=== PATIENT | male | born 1990 | race Caucasian/White ===

== ENCOUNTER 2024-12-08 12:26 | Emergency (ER) | payer SELFPAY | END 2024-12-08 16:06 | disposition left against medical advice (07) | PROVIDERS: Emergency Provider Emergency Medicine | DX: R04.0 Epistaxis (principal); Z53.21 Procedure and treatment not carried out due to patient leaving prior to being seen by health care provider ==

== ENCOUNTER 2025-10-02 09:57 | Emergency (ER) | payer SELFPAY ==
--- NOTE | ~2025-10-02 | XR_ITS ---
CLINICAL HISTORY: chest pain 2 view chest x-ray Comparison: None provided Findings: No consolidation or effusion. Normal size heart. No acute fracture. IMPRESSION: No acute cardiopulmonary findings. This document has been electronically signed by: Ron Velasquez MD on 10/02/2025 10:42:47
--- NOTE | 2025-10-02 09:59 | ED_ITS ---
HPI - General Adult General Chief complaint: Chest Pain Stated complaint: CHEST TIGHTNESS X12H PER EMS Time Seen by Provider: 10/02/25 09:59 Source: patient, EMS and other (patient's partner) Mode of arrival: EMS Limitations: no limitations History of Present Illness ED Provider: Cinthya Whittington PA-C HPI narrative: Patient is a 35 year old assigned male at with a history of TIA, DM not on medication, and tobacco use presenting to the emergency department today with palpitations and chest pain. Patient states that over the last couple of days he has had palpitations - like his heart is skipping a beat. Patient states that then he developed left sided chest pain and dizziness. 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 Patient states that his father around age 46 from a heart attack. Patient sates that he has not been on his Metformin for awhile due to an insurance lapse but he is now insured again and needs to see his PCP to get it represcribed. Patient denies any other complaints at this time. Related Data Previous Rx's ?Medication ?Instructions ?Recorded metformin 500 mg tablet 500 mg PO DAILY #30 tabs Allergies Allergy/AdvReac Type Severity Reaction Status Date / Time amoxicillin (AMOXICILLIN) Allergy Unknown UNKNOWN Verified 10/02/25 10:38 Review of Systems 2 Constitutional: Constitutional: Reports as per HPI Eyes: Eyes: Reports as per HPI ENT: Reports as per HPI Cardiovascular: Cardiovascular: Reports as per HPI Respiratory: Respiratory: Reports as per HPI Gastrointestinal: Gastrointestinal: Reports as per HPI Genitourinary: Genitourinary: Reports as per HPI Musculoskeletal: Musculoskeletal: Reports as per HPI Integumentary/Breasts: Skin/Breast: Reports as per HPI Neurologic: Reports as per HPI Psychiatric: Psychiatric: Reports as per HPI Endocrine: Endocrine: Reports as per HPI Hematologic/Lymphatic: Hematologic/Lymphatic: Reports as per HPI Allergic/Immunologic: Allergic/Immunologic: Reports as per HPI PMF Past Medical History Attestation statement: The following information was validated with the patient. (all information validated with the patient's partner) Source: old records reviewed, nursing notes reviewed and other (patient's partner provided additional history and confirmed the history provided by the patient. ) Social History Social History Smoked in Last 30 Days: Yes Use of substances other than those prescribed or required for medical reasons: No Advance Directives: No Advance Directives Information Provided: Yes Do you have a plan to hurt others: No Plan Physical Exam ED Vital Signs: Vital Signs - 24 hr 10/02/25 10:02 10/02/25 10:06 10/02/25 12:09 Temperature 98.5 F 98.5 F 98.0 F Pulse Rate 99 79 Respiratory Rate 16 18 20 Blood Pressure 136/86 136/86 104/59 L Pulse Oximetry 96 94 99 Oxygen Delivery Method Room Air Room Air Room Air BMI result Body Mass Index 39.9 Const General: cooperative, no acute distress, alert and awake Nutritional Appearance: well nourished Orientation/consciousness: patient oriented x3 HENMT Head: Yes normal to inspection and Yes atraumatic Ears: hearing grossly normal bilaterally and external ears normal General nose exam: Normal external nose present, no nasal discharge noted and no epistaxis Face and sinus: Yes normal facial exam, No abrasion and No laceration Mouth: Normal oral and palatal mucosa present, no drooling and no muffled voice Eyes General: appearance normal, both eyes and all related structures Periorbital: periorbital findings normal Eyelids: Yes eyelids normal Conjunctivae: conjunctivae normal Pupils: Equal, round and reactive pupils present EOM: EOMs intact bilaterally Neck Neck: Yes normal visual inspection and Yes full ROM Resp Effort & Inspection: normal respiratory effort and able to speak in complete sentences Cardio Rate: tachycardic Rhythm: regular rhythm Neuro General: patient oriented x3, moves all extremities and CN's II-XI intact bilaterally Cranial nerves: Yes Equal, round and reactive pupils present Cognition (Neuro): normal cognition Extrem General: Yes normal to inspection, Yes full ROM and Yes capillary refill normal Psych Appearance: grossly normal Mental Status: mental status grossly normal Affect: normal affect Attitude: cooperative Thought process: Normal thought process present Thought content: Normal thought content present Insight: Good insight present (Psych) Medications Administered Discontinued Medications Generic Name Dose Route Start Last Admin Trade Name Freq PRN Reason Stop Dose Admin Lactated Ringer's 1,000 mls @ 999 mls/hr 10/02/25 11:00 10/02/25 11:16 Lr IV 10/02/25 12:00 999 mls/hr .Q1H1M POLO Administration Medical Decision Making Medical Decision Making MDM Narrative: Patient is a 35 year old assigned male at with a history of TIA, DM not on medication, and tobacco use presenting to the emergency department today with palpitations and chest pain. Patient's physical exam was as noted in the physical exam portion of this note. Patient's blood work was unremarkable including negative repeat troponins and d dimer. Patient's EKG showed sinus tachycardia at 102bpm but otherwise unremarkable. Patient's HR was appropriate upon re-evaluation at 79 bpm. Patient's chest x-ray showed no acute process. I explained my physical exam findings as well as all test results to the patient and the patient's partner. I answered all questions asked by the patient and the patient's partner. Given patient's history of diabetes and not currently on his metformin due to lack of prescription - will restart the patient on 500mg of PO Metformin daily. I stressed the importance of the patient taking his medication as directed (either prescribed or as the over the counter packaging recommends). I stressed the importance of the patient following up with his primary care provider and a institutional asset manager given his extensive personal and familial history. I stressed the importance of the patient returning to the emergency department immediately if his symptoms were to worsen or if he were to develop any dizziness, shortness of breath, difficulty breathing, chest pain, blurry vision, loss of vision, nausea, vomiting, abdominal pain, fever, chills, back pain, or any other complaints. Patient and the patient's partner verbalized agreement and understanding with this treatment plan and discharge. Differential Diagnosis Differential Diagnoses: The differential diagnosis associated with the presentation includes Atypical chest pain NSTEMI STEMI PE Palpitations Admission/Observation Consideration of admission/observation: Escalation of care including admission/observation considered Patient would have been admitted to the hospital had his work up had any findings where hospital admission was appropriate and his clinical presentation warranted hospital admission. Lab Data [facility] Lab Attestation statement: I reviewed the patient's lab results. My interpretation of these results are in the MDM Rationale portion of this note. 10/02/25 10:21 10/02/25 10:21 Labs: Lab Results 10/02/25 10/02/25 10/02/25 Range/Units 10:21 10:43 11:32 WBC 6.4 (4.8-10.8) X10*3/uL RBC 5.54 (4.60-5.80) X10*6/uL Hgb 17.2 (14.0-18.0) g/dl Hct 46.7 (42.0-52.0) % MCV 84.3 (80.0-98.0) fL MCH 31.0 (27.0-33.0) pg MCHC 36.8 H (31.0-36.0) g/dl RDW 11.9 (11.0-16.0) % Plt Count 249 (160-400) X10*3/uL MPV 10.0 (9.4-12.4) fL Immature Gran % (Auto) 0.5 H (0.0-0.4) % Neut % (Auto) 54.5 (45-73) % Lymph % (Auto) 35.5 (20-40) % [place] % (Auto) 7.8 (2-11) % Eos % (Auto) 0.9 (0-4) % Baso % (Auto) 0.8 (0-2) % Lymph # (Auto) 2.3 (1.2-4.9) X10*3/uL [place] # (Auto) 0.5 (0.1-1.2) X10*3/uL Eos # (Auto) 0.1 (0.0-0.4) X10*3/uL Baso # (Auto) 0.1 (0.0-0.2) X10*3/uL Abs Immat Gran (auto) 0.03 (0.00-0.03) X10*3/uL Absolute Neuts (auto) 3.5 (2.0-8.3) x10*3/uL Absolute Nucleated RBC 0.000 (0.0-0.012) X10*3/uL Nucleated RBC % (auto) 0.0 (0.0-0.2) /100WBC PT 12.0 (11.2-13.5) SEC INR 1.0 (0.9-1.1) D-Dimer High Sensitivty < 150 NG/ML Sodium 139 (135-145) mmol/L Potassium 3.9 (3.3-5.1) mmol/L Chloride 106 (96-108) mmol/L Carbon Dioxide 24 (22-29) mmol/L Anion Gap 13 (12-20) BUN 14 (9-16) mg/dL Creatinine 0.73 (0.5-1.4) mg/dL Estim Creat Clear Calc 188.1 Estimated GFR > 60 Random Glucose 329 H (60-115) mg/dL Calcium 9.4 (8.4-10.2) mg/dL Magnesium 1.9 (1.6-2.6) mg/dL Total Bilirubin 0.9 (0.0-1.0) mg/dL AST 29 (5-37) U/L ALT 58 H (0-40) U/L Alkaline Phosphatase 142 H (39-117) U/L Troponin I High Sens < 2.7 < 2.7 (<3.5-35.0) ng/L NT-Pro-B Natriuret Pep 133.6 (<300) pg/mL Total Protein 7.5 (6.5-8.0) g/dL Albumin 4.4 (3.5-5.0) g/dL Influenza Type A (PCR) NEGATIVE (Negative) Influenza Type B (PCR) NEGATIVE (Negative) RSV RNA Qual (PCR) NEGATIVE (Negative) SARS-CoV-2 RNA (RT-PCR) NEGATIVE (Negative) Independent Interpretation I performed an independent interpretation of an: EKG and Plain X-Ray Interpretation: My interpretation is in agreement with the radiologist's impression of this imaging study as written below. CLINICAL HISTORY: chest pain 2 view chest x-ray Comparison: None provided Findings: No consolidation or effusion. Normal size heart. No acute fracture. IMPRESSION: No acute cardiopulmonary findings. This document has been electronically signed by: Ron Velasquez MD on 10/02/2025 10:42:47 Dictated By: Ron Velasquez MD Signed By: Electronically signed by Ron Velasquez MD 10/02/25 1044 I independently interpreted this EKG and am in agreement with the below findings: Vent. Rate: 102 BPM Atrial Rate: 102 BPM P-R Int: 150 ms QRS Dur: 96 ms QT Int: 334 ms P-R-T Axes: 27 18 12 degrees QTcB Int: 435 ms Sinus tachycardia When compared with ECG of 27-Jul-2017 12:40, No significant change was found DD/ 1004 Radiology Impression Discussion of test interpretation with radiology: I have reviewed the radiologist's reading. Independent Historian Clinical information obtained from an independent historian. History obtained from or confirmed by: EMS (EMS provided additional history and confirmed the history provided by the patient. ) and Other (patient's partner provided additional history and confirmed the history provided by the patient. ) Chronic Conditions Patient?s care impacted by: Diabetes Discharge Plan Discharge Clinical Impression: Atypical chest pain, Palpitations, Elevated blood sugar Patient Disposition: Home, Self-Care Instructions: Chest Pain (DC), Heart Palpitations (DC), Diabetic Hyperglycemia (ED) Additional Instructions: Your work up today is reassuring there is no EMERGENT cause for your symptoms however, given your personal and familial history - you should follow up with a institutional asset manager. I have restarted you on a low dose of metformin - please take this as prescribed for sugar control. IF you are prescribed home medications and/or you are taking over the counter medications at home - it is very important you continue to do so as prescribed / directed unless told otherwise by a healthcare provider. Follow up with your primary care provider. Do your best to stay well hydrated and rest. Return to the emergency department immediately if your symptoms worsen or if you develop any numbness, tingling, dizziness, shortness of breath, difficulty breathing, chest pain, blurry vision, loss of vision, nausea, vomiting, abdominal pain, fever, chills, back pain, or any other complaints. Please see the information below about our Patient Portal. If you are not yet enrolled in the [facility] Patient Portal, you will receive an enrollment email invitation following your visit to any [facility] care setting. You may also self-enroll in the Patient Portal by visiting our website: [email or web address] The following information is required to access the Patient Portal: - Your [facility] Medical Record Number - Your personal home email address (must match what is in your electronic medical record, Registration staff can assist with this) - Name - Date of Capabilities of the Patient Portal: - Message some providers - View upcoming appointments - Access your health summary, medical history, and visit history - View current conditions and allergies - View procedure and lab results - View your medications, including guidelines, side effects, and precautions - Complete pre-appointment questionnaires requested by your provider - Ready summary reports of your office visits and procedures To access the Patient Portal Mobile Natalia, follow these directions: - Search [employer] in the Natalia Store or [employer] Store - Download the Natalia - Search for [facility] - Enter your login/password Prescriptions: New metformin 500 mg tablet 500 mg PO DAILY Qty: 30 0RF Referrals: [facility] [Provider Group] Referral Note: Call to establish and follow up with a institutional asset manager. Shira Tierney NP [Primary Care Provider, Family Practice] Stand Alone Forms: Work/School Release Interventions: ED Discharge Assessment Last Done: 10/02/25 13:04 Print Language: Thai
--- NOTE | 2025-10-02 09:59 | ECG_ITS ---
Test Reason : chest pain Blood Pressure : */* mmHG Vent. Rate : 102 BPM Atrial Rate : 102 BPM P-R Int : 150 ms QRS Dur : 96 ms QT Int : 334 ms P-R-T Axes : 27 18 12 degrees QTcB Int : 435 ms Sinus tachycardia Otherwise normal ECG When compared with ECG of 27-Jul-2017 12:40, No significant change was found Referred By: Generic ED Physician Electronically Signed By: TON TYLER
[2025-10-02 10:02] VITALS: BP 136/86; RESP 16; TEMP 36.9; O2SAT 96
[2025-10-02 10:06] VITALS: BP 136/86; BP 138/68; PULSE 105; PULSE 99; RESP 18; TEMP 36.9; O2SAT 94; O2SAT 98; BMI 39.9
[2025-10-02 10:25] LABS: MANUAL DIFF FLAG NO
[2025-10-02 10:27] LABS: Hematocrit 46.7 % (42.0-52.0); Hemoglobin 17.2 g/dl (14.0-18.0); Imm Gran Abs Auto 0.03 X10*3/uL (0.00-0.03); Imm Gran Pct Auto 0.5 % (0.0-0.4); Lymphocytes Absolute Auto 2.3 X10*3/uL (1.2-4.9); Mean Corpuscular HGB Conc 36.8 g/dl (31.0-36.0); Mean Corpuscular Hemoglobin 31.0 pg (27.0-33.0); Mean Corpuscular Volume 84.3 fL (80.0-98.0); NRBC Abs Auto 0.000 X10*3/uL (0.0-0.012); NRBC Pct Auto 0.0 /100WBC (0.0-0.2); Platelet Count 249 X10*3/uL (160-400); Red Blood Count 5.54 X10*6/uL (4.60-5.80); White Blood Count 6.4 X10*3/uL (4.8-10.8)
--- OUTSIDE RECORDS SUMMARY | 2025-10-02 10:42 | XMS_ITS | Encounter Summary ---
Author Organization [facility] Address [address] [place] [id number] Phone Care Team Providers Care Green Building Materials Designer Name Role Phone Sara Driscoll MD Primary Care Provider [phone] Tati Lopez RN Unavailable Sara Driscoll MD Unavailable [phone] Encounter Details Date Type Department Care Team (Late st Contact Info) Description 01/07/2021 Procedure Pass [facility], [address] [address] Social History Tobacco Use Types Packs/Day Years Used Date Smoking Tobacco: Every Day Cigarettes 0.5 18 Cigars Smokeless Tobacco: Never Sex and Gender Information Value Date Recorded Sex Assigned at Male 10/12/2021 6:28 PM EST Legal Sex Male 12:05 PM EST Gender Identity Genderqueer/Queer 10/12/2021 6:2 8 PM EST Sexual Orientation Pansexual 10/12/2021 6: 28 PM EST documented as of this encounter Functional Status * Calculated C-SSRS Risk Score (Lifetime/Recent) Answer Date of Assessment Author Moderate Risk 01/07/2021 12:02 AM EST Ellie Perez RN * [place] Suicide Severity Rating Scale (Screener/Recent Self-Report) Question Answer Date of Assessment Author 1. Wish to be (Past 1 Month) No 01/07/2021 12:02 AM Javed Correa RN 2. Non-Specific Active Suici jasmine Thoughts (Past 1 Month) Yes 01/07/2021 12:02 AM Nancy Correa RN 3. Active Suicidal Ideation with any Methods (Not Plan) Without Intent to Act (Past 1 Month) No 01/07/2021 12:02 AM EST Ellie Perez RN 4. Active Suicidal Ideation with Some Intent to Act, Without Specific Plan (Past 1 Month) No 01/07/2021 12:02 AM EST Ellie Perez RN 5. Active Suicidal Ideation with Specific Plan and Intent (Past 1 Month) No 01/07/2021 12:02 AM EST Javed Perez RN 6. Suicidal Behavior (Lifetime) Yes 12:02 AM Ellie Correa RN 6. Suicidal Behavior (3 Months) No 12:02 AM EST Ellie Perez RN documented as of this encounter Plan of Treatment Not on file documented as of this encounter Visit Diagnoses Not on filedocumented in this encounter Additional Health Concerns Infection Onset Date Last Indicated Resolved Time CoV-Risk 10/12/2021 10/12/2021 10/22/2021 1:22 AM EST documented as of this encounter Care Teams Green Building Materials Designer Relationship Specialty Start Date End Date Sara Driscoll MD PCP - General Family Medicine 01/06/21 Tati Lopez, JULIO CESAR [address] [place] [phone] PHCM Fire Protection Fabricator 01/09/21 01/09/21 Sara Driscoll MD [address] [place] [id number] Insurance Assigned Provider 04/09/21 07/13/23 documented as of this encounter Additional Source Comments The information contained in this document represents components of the legal health record. It is not the complete legal health record.[facility]
--- OUTSIDE RECORDS SUMMARY | 2025-10-02 10:42 | XMS_ITS | Encounter Summary ---
Author Organization [facility] Address [address] [place] [address] Phone Care Team Providers Care Deputy Director Of Finance Name Role Phone Sara Driscoll MD Primary Care Provider [phone] Tati Lopez RN Unavailable Sara Driscoll MD Unavailable [phone] Encounter Details Date Type Department Care Team (Late st Contact Info) Description 01/07/2021 Procedure Pass [facility] [address] [place] [address] Social History Tobacco Use Types Packs/Day Years [...] Assessment Author Moderate Risk 01/07/2021 12:02 AM Ellie Correa RN * [place] Suicide Severity Rating Scale (Screener/Recent Self-Report) Question [...] (Past 1 Month) No 01/07/2021 12:02 AM Ellie Correa RN 5. Active Suicidal Ideation with Specific Plan and Intent (Past 1 Month) No 01/07/2021 12:02 AM Javed Correa RN 6. Suicidal Behavior (Lifetime) Yes 12:02 AM Ellie Correa RN 6. Suicidal Behavior (3 Months) No 12:02 AM Ellie Correa RN documented as of this encounter Plan of Treatment Not on file documented as of this encounter Visit Diagnoses Not on filedocumented in this encounter Additional Health Concerns Infection Onset Date Last Indicated Resolved Time CoV-Risk 10/12/2021 10/12/2021 10/22/2021 1:22 AM EST documented as of this encounter Care Teams Deputy Director Of Finance Relationship Specialty Start Date End Date Sara Driscoll MD PCP - General Family Medicine 01/06/21 Tati Lopez, JULIO CESAR [address] [place] [id number] PHCM Electric Motor Control Assembler 01/09/21 01/09/21 Sara Driscoll MD [address] [place] [phone] Insurance Assigned Provider 04/09/21 07/13/23 documented as of this encounter Additional Source Comments The information contained in this document represents components of the legal health record. It is not the complete legal health record.[facility]
--- OUTSIDE RECORDS SUMMARY | 2025-10-02 10:42 | XMS_ITS | Encounter Summary ---
Author Organization [facility] Address [address] [place] [address] Phone Care Team Providers Care Order Packer Or Packager Name Role Phone Sara Driscoll MD Primary Care Provider [phone] Tati Lopez RN Unavailable Sara Driscoll MD Unavailable [phone] Encounter Details Date Type Department Care Team (Late st Contact Info) Description 01/06/2021 Procedure Pass [facility], [facility] Scan - [facility] [address] [place] [address] Social History Tobacco Use Types Packs/Day Years Used Date Smoking Tobacco: Every Day Cigarettes Smokeless Tobacco: Never Sex and Gender Information [...] 01/07/2021 12:02 AM Ellie Correa RN * [place] Suicide Severity Rating Scale (Screener/Recent Self-Report) Question [...] documented as of this encounter Care Teams Order Packer Or Packager Relationship Specialty Start Date End Date Sara Driscoll MD PCP - General Family Medicine 01/06/21 Tati Lopez, JULIO CESAR [address] [place] [phone] PHCM Material Requisitioner 01/09/21 01/09/21 Sara Driscoll MD [address] [place] [id number] Insurance Assigned Provider 04/09/21 07/13/23 documented as of this encounter Additional Source Comments The information contained in this document represents components of the legal health record. It is not the complete legal health record.[facility]
--- OUTSIDE RECORDS SUMMARY | 2025-10-02 10:42 | XMS_ITS | Clinical Summary ---
Author Organization [facility] Address [address] [place] [phone] Phone Care Team Providers Care Bending Roll Hand Name Role Phone Unavailable Primary Care Provider Unavailabl e Immunizations Immunization Administration Dates Next Due DTP 03/26/1995, 2,1990,1989,1990 Hep B, ped/adol 05/01/2000,05/01/1999,03/28/1999 Hib (PRP-T) 06/04/1991,03/04/1991,1990 MMR 03/26/1995,06/04/1991 OPV 03/26/1995, 2,1990,1989 Td (adult) (MBL), 2 Lf tetan us toxoid, PF, adsorbed 06/24/2002 Family History Relation Name Status Comments Father Alive Father: Alive a nd well Half-Brother Alive Half brother (M ): Alive and well Half-Sister Alive Half sister (M) : Alive and well Mother Alive Mother: Alive a nd well Social History Tobacco Use Types Packs/Day Years Used Date Smoking Tobacco: Never Assessed Sex and Gender Information Value Date Recorded Sex Assigned at Not on file Legal Sex Male 4:23 PM EDT Gender Identity Not on file Sexual Orientation Not on file Plan of Treatment Health Maintenance Due Date Last Done Comments DTaP,Tdap,and Td Vaccines (6 - Tdap) 06/25/2002 06/24/2002, 03/26/1995, 1992, Additional history exists Varicella Vaccines (1 of 2 - 13+ 2-dose series) 2003 HPV Vaccines (1 - 3-dose SCDM series) 2017 Influenza Vaccines (#1) 2025 COVID-19 Vaccine (2024- season) 2025 HIB Vaccines Completed 06/04/1991, 11/1990, 1990 IPV Vaccines Completed 03/26/1995, 02/04, 1990, Additional history exists MMR Vaccines Completed 03/26/1995, 06/04/1991 Hepatitis B Vaccines Completed 05/01/2000, 05/01/1999, 03/28/1999 Hepatitis A Vaccines Aged Out No long er eligible based on patient's age to complete this topic Men B Vaccine Aged Out No longer elig ible based on patient's age to complete this topic Meningococcal Vaccine Aged Out No chely cortney eligible based on patient's age to complete this topic Pneumococcal Vaccine Aged Out No long er eligible based on patient's age to complete this topic
--- OUTSIDE RECORDS SUMMARY | 2025-10-02 10:42 | XMS_ITS | Encounter Summary ---
Author Organization [facility] Address [address] [place] [address] Phone Care Team Providers Care Superintendent Measurement Name Role Phone Sara Driscoll MD Primary Care Provider [phone] Tati Lopez RN Unavailable Sara Driscoll MD Unavailable [phone] Encounter Details Date Type Department Care Team (Late st Contact Info) Description 01/06/2021 Procedure Pass [facility], Ct Scan - [facility] [address] [place] [address] Social History Tobacco Use Types Packs/Day Years [...] 01/07/2021 12:02 AM Ellie Correa RN * [place] Suicide Severity Rating Scale (Screener/Recent Self-Report) Question [...] documented as of this encounter Care Teams Superintendent Measurement Relationship Specialty Start Date End Date Sara Driscoll MD PCP - General Family Medicine 01/06/21 Tati Lopez, JULIO CESAR [address] [place] [phone] PHCM Pm Head Cook 01/09/21 01/09/21 Sara Driscoll MD [address] [place] [phone] Insurance Assigned Provider 04/09/21 07/13/23 documented as of this encounter Additional Source Comments The information contained in this document represents components of the legal health record. It is not the complete legal health record.[facility]
--- OUTSIDE RECORDS SUMMARY | 2025-10-02 10:42 | XMS_ITS | Encounter Summary ---
Author Organization [facility] Address [address] [place] [address] Phone Care Team Providers Care Tail Worker Name Role Phone Sara Driscoll MD Primary Care Provider [phone] Tati Lopez RN Unavailable Sara Driscoll MD Unavailable [phone] Encounter Details Date Type Department Care Team (Late st Contact Info) Description 01/07/2021 Procedure Pass [facility], [address] [address] Social History Tobacco Use Types Packs/Day Years [...] 12:02 AM EST Ellie Perez RN * [place] Suicide Severity Rating Scale (Screener/Recent Self-Report) Question [...] documented as of this encounter Care Teams Tail Worker Relationship Specialty Start Date End Date Sara Driscoll MD PCP - General Family Medicine 01/06/21 Tati Lopez, JULIO CESAR [address] [place] [id number] [facility] Patient Care Secretary 01/09/21 01/09/21 Sara Dricsoll MD [address] [place] [id number] Insurance Assigned Provider 04/09/21 07/13/23 documented as of this encounter Additional Source Comments The information contained in this document represents components of the legal health record. It is not the complete legal health record.[facility]
--- OUTSIDE RECORDS SUMMARY | 2025-10-02 10:42 | XMS_ITS | Clinical Summary ---
Author Organization [facility] Address [address] [place] [phone] Phone Care Team Providers Care Collection Development Librarian Name Role Phone Sara Driscoll MD Primary Care Provider [phone] Allergies Active Allergy Reactions Criticality Noted Date Comments Amoxicillin Anaphylaxis High 01/06/2021 Medications omeprazole (PRILOSEC) 20 MG tablet Take 40 mg by mouth daily. Active dextroamphetami ne-amphetamine (ADDERALL XR) 5 MG 24 hr capsule Take 20 mg by mouth every morning. Active dextroamphetami ne-amphetamine (ADDERALL) 10 mg Tab tablet Take 10 mg by mouth daily. Active lithium (LITHOBID) 300 MG ER tablet Take 300 mg by mouth 2 (two) times a day. Active metFORMIN (GLUCOPHAGE) 1000 MG tablet Take 1,000 mg by mouth 2 (two) times a day with meals. Active aspirin 81 MG EC tablet Take 1 tablet (81 mg total) by mouth every morning. 1 Active atorvastatin (LIPITOR) 80 MG tablet Take 1 tablet (80 mg total) by mouth nightly at bedtime. 30 tablet 1 Active FREESTYLE LITE METER meter kit USE TWICE A DAY DIRECTED FOR MONITORING BLOOD GLUCOSE *NOT COVERED* 1 Active FREESTYLE LITE Strp strips USE 1 STRIP TO CHECK BLOOD SUGAR BEFORE EACH MEAL AND AT BEDTIME (4X A DAY) 1 Active FREESTYLE 28 gauge lancets USE TWICE DAILY FOR MONITORING BLOOD GLUCOSE 1 Active EASY TOUCH ALCOHOL PREP PADS PadM USE TWICE DAILY DIRECTED FOR MONITORING GLUCOSE, DX CODE E11.9 Active Active Problems Problem Noted Date Diagnosed Date Acute left-sided weakness 01/07/2021 Assessment & Plan (01/07/2021 2:03 PM EST): Bilateral discoordination of hands, left facial numbness and slurred speech Recent second Covid vaccination a week and a half ago and recently restarted on lithium 3 days ago. Symptoms resolved within 3 hours timeframe and no further symptoms. CT/CTA head: No evolved tentorial infarction or intracranial hemorrhage. Suboptimal CT angiogram due to poor contrast density in the arteries. No abrupt cutoff of flow on CTA in the intracranial arteries or the major extracranial arteries. MRI brain reveals no acute intracranial pathology. No MR evidence of acute infarct. Incidental finding of slightly low-lying cerebellar tonsils. This is less than the cutoff utilized for diagnosis of a Chiari malformation. HDL 41 LDL 109 [employer] level less than 0.10 I discussed the case with Tele neuro whom recommended the following: -Repeat MRI brain with thin cuts through the brainstem to rule out brainstem infarct -Start Lipitor 80 mg for a goal LDL less than 70 -Continue aspirin 81 mg daily -Echocardiogram -Follow-up with neurology Type 2 diabetes mellitus wit hout complication, without long-term current use of insulin 01/07/2021 Assessment & Plan (01/07/2021 2:05 PM EST): Patient is on metformin at home however this will be held during his hospital stay. Last hemoglobin A1c per patient was greater than 13 -Hold metformin -Placed on Humalog sliding scale with meals -Point of cares with meals -Diabetic diet Bipolar disorder 01/07/2021 Assessment & Plan (01/07/2021 2:06 PM EST): She has a history of PTSD and bipolar disorder. He states he was on lithium years ago however just restarted on it a couple of days ago. He states he is to increase the dose every 3 days. No SI or HI Currently he is on lithium 300 mg twice daily which we will continue [employer] dose noted at less than 0.10. Immunizations Immunization Administration Dates Next Due COVID-19 (Pre-08/26) Moderna Vaccine, mRNA, PF 11/02/2021,12/27/2020,12/27/2020,2020,11/29/2020 Hepatitis B Adult 07/07/2021, 0,05/01/1999,1998 INFLUENZA, SPLIT VIRUS, TRIVALENT PF 08/11/2024 Influenza Quadrivalent Prese rvative Free IM 08/09/2023,08/09/2022,08/07/2021 MMR 03/26/1995,06/04/1991 Tdap 11/23/2020 Family History Medical History Relation Comments Bipolar disorder Father Depression Father Diabetes Father Heart disease Father Bipolar disorder Mother Depression Mother Heart disease Sister Relation Status Comments Father Mother Sister Social History Tobacco Use Types Packs/Day Years Used Date Smoking Tobacco: Every Day Cigarettes 0.5 18 Cigars Smokeless Tobacco: Never Tobacco Cessation:Ready to Q uit: No; Counseling Given: Yes Education Answer Date Recorded Are you interested in more education? Not on ebenezer e 03/01/2023 Are you concerned about learning? Not on file 03/01/2023 No 03/01/2023 No 03/01/2023 Digital Access Answer Date Recorded No 03/30/2023 No 03/30/2023 Reliable internet access at home? Not on file 03/30/2023 Device with a working camera? Not on file Intimate Partner Violence Answer Date R ecorded Are you denied basic needs s uch as food, clothing, or medical care? No 05/17/2023 In the past 12 months have y ou been in a relationship with a person who hurts, threatens, or tries to control you? No 05/17/2023 Are you denied basic needs s uch as food, clothing, or medical care? No 05/17/2023 In the past 12 months have y ou been in a relationship with a person who hurts, threatens, or tries to control you? No 05/17/2023 Sex and Gender Information Value Date Recorded Sex Assigned at Male 10/12/2021 6:28 PM EST Legal Sex Male 12:05 PM EST Gender Identity Genderqueer/Queer 10/12/2021 6:2 8 PM EST Sexual Orientation Pansexual 10/12/2021 6: 28 PM EST Last Filed Vital Signs Vital Sign Reading Time Taken Comments Blood Pressure 119/70 05/17/2023 9:15 PM EDT Pulse 72 05/17/2023 5:56 PM EDT Temperature 36.6 C (97.9 F) 05/17/2023 10:04 PM EDT Respiratory Rate 16 05/17/2023 5:56 PM EDT Oxygen Saturation 100% 05/17/2023 9:15 PM EDT Inhaled Oxygen Concentration - - Weight 142 kg (313 lb) 05/17/2023 4:03 PM EDT Height 172.7 cm (5' 8 ) 05/17/2023 4:03 PM EDT Body Mass Index 47.59 05/17/2023 4:03 PM EDT Plan of Treatment Health Maintenance Due Date Last Done Comments BLOOD PRESSURE 1990 TSH LEVEL 1990 DEPRESSION SCREENING 2002 SMOKING Hx and SMOKELESS TOBACCO SCREENING 2003 HIV ONE-TIME SCREENING (18-65 YEARS) 2008 DIABETIC EYE EXAM 01/07/2021 PNEUMOCOCCAL VACCINES (0-49 years) (2 of 2 - PCV) 02/02/2022 02/02/2021 URINE MICROALBUMIN/CREATININE RATIO 02/21/2022 02/21/2021 HEMOGLOBIN A1C 06/05/2022 12/06/2021 CREATININE LEVEL 05/17/2024 05/17/2023, 05/2021, 01/06/2021 LITHIUM LEVEL 05/17/2024 05/17/2023, 01/06/2021 INFLUENZA VACCINE (#1) 2025 , 08/09/2023, 08/09/2022, Additional history exists COVID-19 VACCINE ( season) 2025 11/02/2021, 12/27/2020, 12/27/2020, Additional history exists Adult Td,Tdap Booster 11/23/2030 11/23/2020 , 12/11/2012, 06/24/2002 HIB VACCINES Completed 06/04/1991, 11/1990, 03/04/1991, Additional history exists HEPATITIS C SCREENING Completed 11/23/2020 HEPATITIS A VACCINES Aged Out No long er eligible based on patient's age to complete this topic MENINGOCOCCAL VACCINES (ACWY) Aged Out No longer eligible based on patient's age to complete this topic MENINGOCOCCAL VACCINES (B) Aged Out N o longer eligible based on patient's age to complete this topic Medical Devices Not on file Procedures Procedure Name Priority Date/Time Associated Diagnosis Comments LITHIUM LEVEL STAT 05/17/2023 5:05 PM EDT BASIC METABOLIC PANEL (BMP) STAT 05/17/2023 5:05 PM EDT from Last 3 Months or Most Recently Relevant to Health Maintenance Results * (ABNORMAL) [employer] level (05/17/2023 5:05 PM EDT) LITHIUM 0.41(L) 0.5 - 1.00 mmol/L [facility] Blood 05/17/2023 5:05 PM EDT 05/17/2023 5:08 PM EDT Stanley López MD LAB BLOOD BKR ORDERABLES Final Result [address] [id number] * (ABNORMAL) Basic metabolic panel (05/17/2023 5:05 PM EDT) SODIUM 140 133 - 146 mmol/L [facility] CHLORIDE 106 96 - 108 mmol/L [facility] POTASSIUM 3.8 3.3 - 5.1 mmol/L [facility] CO2 24 21 - 35 mmol/L [facility] BUN 14 6 - 19 mg/dL [facility] CREATININE 0.70 0.5 - 1.5 mg/dL [facility] GLUCOSE 184(H) 70 - 99 mg/dL [facility] CALCIUM 8.8 8.4 - 10.3 mg/dL [facility] EGFR >120 >59 mL/min/1.7 3m2 [facility] Comment:Estimated glomerular filtration rate calculated using the CKD-EPI refit equation. ANION GAP 14 10 - 20 mmol/L [facility] Blood 05/17/2023 5:05 PM EDT 05/17/2023 5:08 PM EDT Stanley López MD LAB BLOOD BKR ORDERABLES Final Result [address] [id number] from Last 3 Months or Most Recently Relevant to Health Maintenance Insurance [facility] [employer] [employer] [facility] [employer] [address] [place] [address] [employer] [employer] FAMILY [employer] [employer] [address] [place] [address] [employer] FAMILY Advance Directives For more information, please contact: [phone] (9AM - 5PM [facility], Saturday-Saturday) * Full Code (Latest Code Status on File) Date Activated Date Inactivated Comments 01/07/2021 3:47 AM Question Answer Comments Code Status Confirmed With: Patient Care Teams Collection Development Librarian Relationship Specialty Start Date End Date Sara Driscoll MD PCP - General Family Medicine 01/06/21 Additional Source Comments The information contained in this document represents components of the legal health record. It is not the complete legal health record.[facility]
--- OUTSIDE RECORDS SUMMARY | 2025-10-02 10:42 | XMS_ITS | Encounter Summary ---
Author Organization [facility] Address [address] [place] [phone] Phone Care Team Providers Care Braze Operator Name Role Phone Sara Driscoll MD Primary Care Provider [phone] Sara Driscoll MD Unavailable [phone] Encounter Details Date Type Department Care Team (Late st Contact Info) Description 05/17/2023 Procedure Pass [facility] - [address] [address] Social History Tobacco Use Types Packs/Day Years Used Date Smoking Tobacco: Every Day Cigarettes 0.5 18 Cigars Smokeless Tobacco: Never Education Answer Date Recorded Are you interested [...] PM EST documented as of this encounter Plan of Treatment Not on file documented as of this encounter Visit Diagnoses Not on filedocumented in this encounter Care Teams Braze Operator Relationship Specialty Start Date End Date Sara Driscoll MD PCP - General Family Medicine 01/06/21 Sara Driscoll MD [address] [place] [address] Insurance Assigned Provider 04/09/21 07/13/23 documented as of this encounter Additional Source Comments The information contained in this document represents components of the legal health record. It is not the complete legal health record.[facility]
[2025-10-02 10:49] LABS: Alanine Aminotransferase 58 U/L (0-40); Albumin Level 4.4 g/dL (3.5-5.0); Alkaline Phosphatase 142 U/L (39-117); Anion Gap 13 (12-20); Aspartate Amino Transferase 29 U/L (5-37); Blood Urea Nitrogen 14 mg/dL (9-16); Calcium 9.4 mg/dL (8.4-10.2); Carbon Dioxide 24 mmol/L (22-29); Chloride 106 mmol/L (96-108); Creatinine Clr Calc Pharmacy 188.1; Estimated Glomerular Filt Rate > 60; Magnesium 1.9 mg/dL (1.6-2.6); Potassium 3.9 mmol/L (3.3-5.1); Sodium 139 mmol/L (135-145); Total Protein 7.5 g/dL (6.5-8.0)
[2025-10-02 11:12] LABS: Troponin-I High Sensitivity < 2.7 ng/L (<3.5-35.0)
[2025-10-02] MEDS: Lactated Ringers 1,000 ML 999 ML IV (11:16)
[2025-10-02 11:40] LABS: NT Pro B Type Natriuretic Pept 133.6 pg/mL (<300)
[2025-10-02 11:42] LABS: INTERNATIONAL NORM RATIO 1.0 (0.9-1.1); Prothrombin Time 12.0 SEC (11.2-13.5)
[2025-10-02 11:45] LABS: D Dimer High Sensitivity < 150 NG/ML
[2025-10-02 11:46] LABS: Resp Syncy Virus RNA Qual PCR NEGATIVE (Negative); SARS COV2 PCR INHOUSE NEGATIVE (Negative)
[2025-10-02 12:03] LABS: Troponin-I High Sensitivity < 2.7 ng/L (<3.5-35.0)
[2025-10-02 12:09] VITALS: BP 104/59; PULSE 79; RESP 20; TEMP 36.7; O2SAT 99
[2025-10-02 13:04] VITALS: BP 104/59; PULSE 79; RESP 20; TEMP 36.7; O2SAT 99
== END 2025-10-02 13:04 | disposition home or self-care (01) ==
PROVIDERS: Physician Assistant Medical; Emergency Provider Emergency Medicine; PCP Nurse Practitioner Primary Care
DX: R07.89 Other chest pain (principal); R00.0 Tachycardia, unspecified; R11.0 Nausea; R06.02 Shortness of breath; Z86.73 Personal history of transient ischemic attack (TIA), and cerebral infarction without residual deficits; Z03.818 Encounter for observation for suspected exposure to other biological agents ruled out; Z79.899 Other long term (current) drug therapy
CPT/HCPCS: 36415; 71046; 80053; 83735; 83880; 84484; 85025; 85379; 85610; 87637; 93005; 96360; 99284; 99285; J7120

== ENCOUNTER → 2025-10-02 09:59 | Outpatient (BNV) | payer SELFPAY | PROVIDERS: Emergency Provider Emergency Medicine; PCP Nurse Practitioner Primary Care; Visit Provider Internal Medicine | DX: R00.0 Tachycardia, unspecified (principal) | CPT/HCPCS: 93010 ==

== ENCOUNTER → 2025-10-02 10:00 | Outpatient (BNV) | payer SELFPAY | PROVIDERS: PCP Nurse Practitioner Primary Care; Visit Provider Radiology Vascular & Interventional Radiology | DX: R07.9 Chest pain, unspecified (principal) | CPT/HCPCS: 71046 ==